=== PATIENT | male | born 1950 | race Caucasian/White ===

== ENCOUNTER 2018-04-14 11:17 | Emergency (ER) | payer MEDICARE ==
[~2018-04-14] VITALS: Ht 172.7 cm; Wt 79.4 kg
[2018-04-14 11:21] VITALS: BP 118/79
[2018-04-14] MEDS ORDERED: LORazepam 1 MG tablet PO ONE (13:15)
--- NOTE | 2018-04-14 13:26 | NUR ---
Telepsych initiated, spoke with MD and he will call Pt in a few minutes.
--- NOTE | 2018-04-14 14:19 | NUR ---
Contacted telepsych for report, is still working on it.
[2018-04-14] MEDS ORDERED: QUET50TA PO (14:39)
--- NOTE | 2018-04-14 14:57 | NUR ---
Pt states feeling less anxious after medication administered.
== END 2018-04-14 14:58 | disposition home or self-care (01) ==
LOC: ER 11:18
DX: F22 Delusional disorders (principal)
CPT/HCPCS: 99284

== ENCOUNTER 2019-12-03 05:26 | Day surgery (SDC) | payer MEDICARE ==
[2019-11-26 11:04] LABS: BASOPHILS % (AUTO) 0.4 % (0-1); EOSINOPHILS # (AUTO) 0.1 X10'3 (0-0.9); EOSINOPHILS % (AUTO) 3.3 % (0-6); LYMPHOCYTES # (AUTO) 1.4 X10'3 (1.1-4.8); LYMPHOCYTES % (AUTO) 31.2 % (21-51); MEAN CORPUSCULAR HEMOGLOBIN 31.2 PG (27.0-31.0); MEAN CORPUSCULAR HGB CONC 33.6 g/dL (33.0-36.5); MEAN CORPUSCULAR VOLUME 92.9 FL (78-98); MEAN PLATELET VOLUME 6.9 FL (7.4-10.4); MONOCYTES # (AUTO) 0.5 X10'3 (0-0.9); MONOCYTES % (AUTO) 11.3 % (2-12); NEUTROPHILS # (AUTO) 2.5 X10'3 (1.8-7.7); NEUTROPHILS % (AUTO) 53.8 % (42-75); PRE OP HEMATOCRIT 46.6 % (42.0-52.0); PRE OP HEMOGLOBIN 15.7 g/dL (14.0-17.9); PRE OP PLATELET COUNT 179 X10'3 (140-440); RED BLOOD COUNT 5.02 X10'6 (4.70-6.10); RED CELL DISTRIBUTION WIDTH 13.6 % (11.5-14.5)
[2019-11-26 11:18] LABS: ALBUMIN 4.2 G/DL (3.4-5.0); ALBUMIN/GLOBULIN RATIO 1.3 (1.1-1.5); ALKALINE PHOSPHATASE 70 IU/L (46-116); BLOOD UREA NITROGEN 17 MG/DL (7-18); CALCIUM 9.5 MG/DL (8.5-10.1); CHLORIDE 106 MMOL/L (99-107); PRE OP ALT 44 U/L (30-65); PRE OP ANION GAP 5 (8-16); PRE OP AST 24 U/L (10-37); PRE OP BILIRUB, TOTAL 1.1 MG/DL (0.0-1.0); PRE OP GLUCOSE 106 MG/DL (70-104); PRE OP POTASSIUM 4.3 MMOL/L (3.4-5.1); PRE OP SODIUM 137 MMOL/L (135-145); TOTAL CARBON DIOXIDE 26.2 MMOL/L (24-32); TOTAL PROTEIN 7.4 G/DL (6.4-8.2); eGFR 74 ML/MIN
[~2019-12-03] VITALS: Ht 175.3 cm; Wt 93.0 kg
[~2019-12-03 05:26] MED LIST: ENAL-76 PO; ESCI10TA61 PO; LOVA40TA2 PO; TERA10CA4 PO; TRAZ-256 PO; ringers solution, lacted 1,000 ML IV SCH
[2019-12-03 05:30] VITALS: BP 149/97
[2019-12-03] MEDS ORDERED: famotidine 20mg tablet PO ONE (05:30)
[2019-12-03] MEDS ORDERED: cefazolin/dext.iso 2gm/50ml 50 ML IV ONE (06:00)
[2019-12-03] MEDS ORDERED: bacitracin 15gm ointment TP ONE (09:00)
[2019-12-03] MEDS ORDERED: BUPIVAcaine/PF 2.5 mg/ml (0.25%) 30ml vial ONE (09:19)
[2019-12-03] MEDS ORDERED: sevoflurane 250ml liquid IH ONE (09:26)
[2019-12-03] MEDS ORDERED: midazolam 2 mg/2 ml injection ONE (09:27)
[2019-12-03] MEDS ORDERED: fentaNYL/PF 50MCG/1 ML 2ML syringe ONE (09:27)
[2019-12-03] MEDS ORDERED: morphine 4 MG/ML inj SYRINge IV PRN (09:55)
[2019-12-03] MEDS ORDERED: meperidine/PF 25mg/ml syringe IV PRN ×3 (09:55)
[2019-12-03] MEDS ORDERED: ringers solution, lacted 1,000 ML IV SCH (09:55)
[2019-12-03] MEDS ORDERED: proCHLORperazine 10 MG/2 ml inj IV PRN (09:55)
[2019-12-03] MEDS ORDERED: ondansetron/PF 4mg/2ml inj IV PRN (09:55)
[2019-12-03] MEDS ORDERED: morphine 2 MG/ML inj. syringe IV PRN (09:55)
[2019-12-03] MEDS ORDERED: propofol inj 20 ML IV ONE (10:15)
--- NOTE | 2019-12-03 10:24 | NUR ---
Received from OR via [facility] , accompanied by Anesthesiologist MARIE and report given by Anesthesiolgist. PATIENT WITH BOOT TO LEFT LE. DRESSING CDI. GATCHED FOOT OF [place] UPON ARRIVAL 20G PIV IN LEFT UE RUNNING LR AT 100. VSS AT THIS TIME. + CAP REFILL TO TOES. Addendum: 12/03/19 at 1036 by Mario Alberto Mitchell RN, RN Amended: Links added.
[2019-12-03 10:32] VITALS: BP 143/98
[2019-12-03 10:42] VITALS: BP 165/105
[2019-12-03 10:52] VITALS: BP 138/90
[2019-12-03 11:02] VITALS: BP 172/109
--- NOTE | 2019-12-03 11:12 | NUR ---
PATIENT AND FAMILY AND THEY HAVE VERBALIZED UNDERSTANDING, OPPORTUNITY TO ASK QUESTIONS GIVEN AND PATIENT COMFORTABLE WITH DC. IV TAKEN OUT WITHOUT COMPLICATION. PATIENT HAS MET ALL DC CRITERIA FOR DC HOME. I HAVE REVIEWED D/C INSTRUCTIONS WITH OUT VIA WHEELCHAIR WHERE PATIENT WAS TAKEN HOME WITH ALL BELONGINGS. FAMILY GAVE PATIENT TRANSPORT HOME. Addendum: 12/03/19 at 1129 by Mario Alberto Mitchell RN, RN Amended: Links added.
== END 2019-12-03 11:12 | disposition home or self-care (01) ==
LOC: PAS 05:26
PROVIDERS: ATTEND Podiatrist Foot & Ankle Surgery
DX: M19.072 Primary osteoarthritis, left ankle and foot (principal); Z20.828 Contact with and (suspected) exposure to other viral communicable diseases; I10 Essential (primary) hypertension; F41.9 Anxiety disorder, unspecified; Z98.890 Other specified postprocedural states; Z88.5 Allergy status to narcotic agent; Z86.718 Personal history of other venous thrombosis and embolism; Z79.899 Other long term (current) drug therapy; Z79.82 Long term (current) use of aspirin; Z87.891 Personal history of nicotine dependence
CPT/HCPCS: 28750; 36415; 73620; 76000; 80053; 82948; 85025; 87635; 93005; A6223; C1713; J2250; J2704; J3010; J3490; A4215; A4618; A6449; A7000; J7120